=== PATIENT | male | born 1975 | race Caucasian/White ===

== ENCOUNTER 2023-09-09 16:10 | Emergency (ER) | payer OTHER, SELFPAY ==
--- NOTE | 2023-09-09 | ECG_ITS ---
Test Reason : SYNCOPE Blood Pressure : / mmHG Vent. Rate : 058 BPM Atrial Rate : 058 BPM P-R Int : 174 ms QRS Dur : 098 ms QT Int : 406 ms P-R-T Axes : 073 065 051 degrees QTc Int : 398 ms Sinus bradycardia Possible Left atrial enlargement Borderline ECG No previous ECGs available Referred By: Generic ED Physician Electronically Signed By:Joaquim Fontana
--- NOTE | ~2023-09-09 | CT_ITS ---
EXAMINATION: CT head/brain wo IV con CT facial bones wo IV con CT cervical spine wo IV con INDICATION INFORMATION: fall, head strike COMPARISON: None TECHNIQUE: Multidetector CT acquisitions of the head, maxillofacial region, and cervical spine were obtained without IV contrast. Multiplanar reformats were acquired and utilized for image interpretation. This CT examination was performed using dose optimization techniques as appropriate, variously including the following: * Automated exposure control * Adjustment of mA and/or kV according to patient size (this includes techniques or standardized protocols for targeted exams where dose is matched to indication/reason for exam; i.e. extremities or head) Use of iterative reconstruction technique DLP: 1528 mGy-cm FINDINGS: HEAD: There is no evidence of acute intracranial hemorrhage or territorial infarction. No abnormal mass-effect or midline shift is seen. Martinez to white matter differentiation is well preserved. No extra-axial fluid collections are identified. No hydrocephalus. No significant volume loss. There is no abnormal attenuation within the brain parenchyma. No acute soft tissue abnormality. No acute calvarial fracture. The mastoid air cells are well aerated. MAXILLOFACIAL: No acute maxillofacial fractures are seen. The mandible, maxilla, pterygoid plates, nasal bones, zygomatic arches, paranasal sinus ramírez, and bony orbits are intact. Mucoperiosteal thickening in dependent fluid in the right maxillary sinus. Otherwise, the frontal, maxillary, ethmoid, and sphenoid sinuses are well aerated. The uncinate process is normal bilaterally. The infundibula and middle meati are patent. There is a Side rightward nasal septal deviation. The mandibular heads are well-seated in the condylar fossa. The orbits demonstrate a normal appearance bilaterally. The globes are intact, and there are no suspicious findings to suggest retrobulbar hemorrhage. CERVICAL SPINE: There is anatomic alignment of the vertebral bodies and posterior elements. Degenerative disc disease at C6-C7 with loss intervertebral disc height and marginal osteophytes. Otherwise, intervertebral disc spaces are maintained. Vertebral body heights are normal. No acute fracture or subluxation. Mild atlantodental spondylosis. The atlantooccipital and atlantoaxial articulations are normal. Moderate left C6-C7 and right C5-C6 neural foraminal stenosis. The bony canal and neural foramina are otherwise well maintained. There is no prevertebral soft tissue swelling. No significant soft tissue abnormality within the neck. The visualized lung apices are clear. CT/CT cervical spine wo IV con IMPRESSION: 1. No acute intracranial abnormality. 2. No acute osseous abnormality within the maxillofacial region. 3. No acute osseous abnormality within the cervical spine. Degenerative disc disease at C6-C7.
[2023-09-09 16:17] VITALS: BP 125/83; PULSE 60; O2SAT 92
[2023-09-09 16:21] VITALS: BMI 28.2
[2023-09-09 16:26] VITALS: BP 115/69; PULSE 57; RESP 14; TEMP 36.7; O2SAT 96
--- NOTE | 2023-09-09 16:40 | PC.NURSE ---
pt biba - having lunch w/ family - witnessed syncopal episode. 30 second LOC. +headstrike - contusion to right occiput. lac to right eyebrow. extremely pale/somnolent upon EMS arrival. 92% on RA - placed on 2L via NC w/ good effect. verbalizes dizziness/lightheaded prior to fall. had one drink today. upon ED arrival - pt seemingly confused/sleepy. arousable to verbal stimuli but keeps closing eyes when conversating. pt still verbalizing feeling dizzy/lightheaded s/p fall. small laceration noted to pt's right eyebrow. bleeding controlled. vss and up to date. on RA w/o difficulty. 20gIV placed in the left hand by EMS - patent/intact. pt refused hard c-collar. as an alternate, towel c-collar in place d/t pt's previous refusal. no sob/wob noted. respirations even/unlabored. lights dimmed d/t pt verbalizing that the lights are bothering his eyes. plan of care ongoing. call padilla placed within reach.
[2023-09-09 16:43] LABS: MANUAL DIFF FLAG NO
[2023-09-09 16:45] LABS: Basophils Absolute Auto 0.1 X10*3/uL (0.0-0.2); Basophils Percent Auto 0.8 % (0-2); Eosinophils Absolute Auto 0.2 X10*3/uL (0.0-0.4); Eosinophils Percent Auto 2.8 % (0-4); Hemoglobin 13.8 g/dl (14.0-18.0); Imm Gran Abs Auto 0.08 X10*3/uL (0.00-0.03); Lymphocytes Absolute Auto 2.8 X10*3/uL (1.2-4.9); Lymphocytes Percent Auto 35.9 % (20-40); Mean Corpuscular HGB Conc 34.5 g/dl (31.0-36.0); Mean Corpuscular Hemoglobin 29.6 pg (27.0-33.0); Mean Corpuscular Volume 85.7 fL (80.0-98.0); Mean Platelet Volume 9.5 fL (9.4-12.4); Monocytes Absolute Auto 0.8 X10*3/uL (0.1-1.2); Monocytes Percent Auto 9.8 % (2-11); Neutrophils Absolute Auto 3.9 x10*3/uL (2.0-8.3); Neutrophils Percent Auto 49.7 % (45-73); Platelet Count 316 X10*3/uL (160-400); Red Blood Count 4.67 X10*6/uL (4.60-5.80); Red Cell Distribution Width 12.3 % (11.0-16.0); White Blood Count 7.8 X10*3/uL (4.8-10.8)
--- NOTE | 2023-09-09 16:45 | ED_ITS ---
HPI - General Adult General Chief complaint: Syncope Stated complaint: SYNCOPE W/ FALL Time Seen by Provider: 09/09/23 16:44 Source: patient, family (patient's ) and EMS Mode of arrival: EMS Limitations: no limitations History of Present Illness ED Provider: Courtney Kim PA-C HPI narrative: Patient is a 47 year old assigned male at with no reported medical history presenting to the emergency department today with nausea and vomiting after a syncopal episode. Patient states that after he ate breakfast this morning, they were sitting around talking, when he passed out and hit his head. Patient states that since he has woken up he has been vomiting and nauseous. Patient denies any dizziness, lightheadedness, abdominal pain, fever, chills, blurry vision, double vision, loss of vision, chest pain, difficulty breathing, shortness of breath, back pain, night sweats, pain with urination, increased urinary frequency, increased urinary urgency, blood in his urine or stool, syncope or a near syncopal episode, bowel incontinence, bladder incontinence, or any other complaints at this time. Onset (ago): minute(s) Relieving factors: none Exacerbating factors: none Associated symptoms: nausea/vomiting and syncope Treatments prior to arrival: none Related Data Previous Rx's ?Medication ?Instructions ?Recorded ondansetron 4 mg disintegrating 4 mg PO Q8H 3 days #9 tabs 09/09/23 tablet Allergies Allergy/AdvReac Type Severity Reaction Status Date / Time No Known Allergies Allergy Verified 09/09/23 16:22 Review of Systems 2 Constitutional: Constitutional: Reports no additional constitutional complaints, Denies chills, Denies fever(s) and Denies night sweats Eyes: Eyes: Reports no additional eye complaints, Denies blurry vision, Denies change in vision, Denies diplopia, Denies eye discharge, Denies loss of vision and Denies eye pain ENT: Denies dizziness Cardiovascular: Cardiovascular: Reports no additional cardiovascular complaints, Denies chest pain, Reports syncope, Denies lightheadedness, Denies Loss of Consciousness and Denies dyspnea Respiratory: Respiratory: Reports no additional respiratory complaints and Denies dyspnea Gastrointestinal: Gastrointestinal: Reports no additional gastrointestinal complaints, Denies abdominal pain, Denies melena, Denies hematochezia, Denies change in bowel habits, Denies change in stool character, Reports nausea and Reports vomiting Genitourinary: Genitourinary: Reports no additional male genitourinary complaints, Denies hematuria, Denies oliguria, Denies difficulty urinating, Denies dysuria, Denies urinary frequency, Denies urinary hesitancy, Denies urinary incontinence and Denies urinary urgency Musculoskeletal: Musculoskeletal: Reports no additional musculoskeletal complaints, Denies numbness and Denies tingling Neurologic: Denies dizziness, Reports syncope, Denies loss of vision, Denies numbness and Denies tingling Psychiatric: Psychiatric: Reports no additional psychiatric complaints Endocrine: Endocrine: Reports no additional endocrine complaints Hematologic/Lymphatic: Hematologic/Lymphatic: Reports no additional hematologic/lymphatic complaints Allergic/Immunologic: Allergic/Immunologic: Reports no additional allergic/immunologic complaints PMFSH Past Medical History Attestation statement: The following information was validated with the patient. (all information validated with the patient's ) Source: old records reviewed, obtained from family (patient's provided additional history and confirmed the history provided) and nursing notes reviewed Social History Social History Alcohol intake: current Alcohol intake frequency: holidays/special occasions only Smoked in Last 30 Days: No Use of substances other than those prescribed or required for medical reasons: No Advance Directives: No Advance Directives Information Provided: No Do you have a plan to hurt others: No Plan Physical Exam ED Vital Signs: Vital Signs - 24 hr 09/09/23 16:26 09/09/23 18:13 09/09/23 18:16 Temperature 98.0 F Pulse Rate 57 61 Respiratory Rate 14 16 Blood Pressure 115/69 125/73 Pulse Oximetry 96 96 96 Oxygen Delivery Method Room Air Room Air Room Air 09/09/23 19:10 Temperature 98 F Pulse Rate 61 Respiratory Rate 16 Blood Pressure 125/73 Pulse Oximetry 96 Oxygen Delivery Method Room Air BMI result Body Mass Index 28.2 Const General: cooperative, no acute distress, alert and awake Nutritional Appearance: well nourished Orientation/consciousness: patient oriented x3 Limitations: no limitations HENMT Ears: hearing grossly normal bilaterally and external ears normal General nose exam: Normal external nose present, no nasal discharge noted and no epistaxis Face images: 2 1. 0.25cm laceration to the right eyebrow - no active bleeding Mouth: Normal oral and palatal mucosa present, no drooling and no muffled voice Eyes General: appearance normal, both eyes and all related structures Periorbital: periorbital findings normal Eyelids: Yes eyelids normal Conjunctivae: conjunctivae normal Pupils: Equal, round and reactive pupils present EOM: EOMs intact bilaterally Neck Neck: Yes normal visual inspection, Yes full ROM and Yes no lymphadenopathy Chest Chest palpation & inspection: normal inspection of the chest Resp Effort & Inspection: normal respiratory effort and able to speak in complete sentences GI Inspection: Yes normal to inspection Neuro General: patient oriented x3 and moves all extremities Cranial nerves: Yes Equal, round and reactive pupils present Cognition (Neuro): normal cognition Extrem General: Yes normal to inspection, Yes full ROM and Yes capillary refill normal Psych Appearance: grossly normal Mental Status: mental status grossly normal Affect: normal affect Attitude: cooperative Thought process: Normal thought process present Thought content: Normal thought content present Insight: Good insight present (Psych) Medications Administered Discontinued Medications Generic Name Dose Route Start Last Admin Trade Name Freq PRN Reason Stop Dose Admin Sodium Chloride 1,000 mls @ 999 mls/hr 09/09/23 18:00 09/09/23 19:04 Ns IV 09/09/23 19:00 Infused .Q1H1M NORA Infusion Ondansetron HCl 4 mg 09/09/23 16:49 09/09/23 16:52 Ondansetron Hcl 4 Mg/2 Ml Vial IVPUSH 09/09/23 16:50 4 mg ONCE ONE Administration Procedures Laceration right eyebrow: Site: other (eyebrow) Side (If applicable): right Size (cm): 0.25 Description: linear Depth: simple, single layer Pre-repair: irrigated extensively and deep structures intact Skin layer closed with: other (dermabond) Size (cm): other (dermabond) Technique: other (dermabond) Medical Decision Making Medical Decision Making MDM Narrative: Patient is a 47 year old assigned male at with no reported medical history presenting to the emergency department today after a syncopal episode. Patient's physical exam was as noted in the physical exam portion of this note. Patient's blood work was unremarkable. Patient's EKG was unremarkable. Patient's CT head, neck, and facial bones showed no acute process. I explained my physical exam findings as well as all test results to the patient and the patient's . I answered all questions asked by the patient and the patient's . Patient received IV fluids and Zofran which he stated helped his symptoms significantly. I stressed the importance of the patient taking his medication as directed (either prescribed or as the over the counter packaging recommends). I stressed the importance of the patient following up with his primary care provider. I stressed the importance of the patient returning to the emergency department immediately if his symptoms were to worsen or if he were to develop any dizziness, shortness of breath, difficulty breathing, chest pain, blurry vision, loss of vision, nausea, vomiting, abdominal pain, fever, chills, back pain, or any other complaints. Patient and the patient's verbalized agreement and understanding with this treatment plan and discharge. Differential Diagnosis Differential Diagnoses: The differential diagnosis associated with the presentation includes Syncopal episode Dehydration Head strike R eyebrow laceration Admission/Observation Consideration of admission/observation: Escalation of care including admission/observation considered Patient would have been admitted to the hospital had his work up had any findings where hospital admission was appropriate and his clinical presentation warranted hospital admission. Lab Data [facility] Lab Attestation statement: I reviewed the patient's lab results. My interpretation of these results are in the [facility] Rationale portion of this note. 09/09/23 16:31 09/09/23 16:31 Labs: Lab Results 09/09/23 09/09/23 Range/Units 16:31 17:45 WBC 7.8 (4.8-10.8) X10*3/uL RBC 4.67 (4.60-5.80) X10*6/uL Hgb 13.8 L (14.0-18.0) g/dl Hct 40.0 L (42.0-52.0) % MCV 85.7 (80.0-98.0) fL MCH 29.6 (27.0-33.0) pg MCHC 34.5 (31.0-36.0) g/dl RDW 12.3 (11.0-16.0) % Plt Count 316 (160-400) X10*3/uL MPV 9.5 (9.4-12.4) fL Immature Gran % (Auto) 1.0 H (0.0-0.4) % Neut % (Auto) 49.7 (45-73) % Lymph % (Auto) 35.9 (20-40) % Wilbarger % (Auto) 9.8 (2-11) % Eos % (Auto) 2.8 (0-4) % Baso % (Auto) 0.8 (0-2) % Lymph # (Auto) 2.8 (1.2-4.9) X10*3/uL Wilbarger # (Auto) 0.8 (0.1-1.2) X10*3/uL Eos # (Auto) 0.2 (0.0-0.4) X10*3/uL Baso # (Auto) 0.1 (0.0-0.2) X10*3/uL Abs Immat Gran (auto) 0.08 H (0.00-0.03) X10*3/uL Absolute Neuts (auto) 3.9 (2.0-8.3) x10*3/uL Absolute Nucleated RBC 0.000 (0.0-0.012) X10*3/uL Nucleated RBC % (auto) 0.0 (0.0-0.2) /100WBC Sodium 141 (135-145) mmol/L Potassium 3.5 (3.3-5.1) mmol/L Chloride 106 (96-108) mmol/L Carbon Dioxide 25 (22-29) mmol/L Anion Gap 14 (12-20) BUN 13 (9-16) mg/dL Creatinine 1.02 (0.5-1.4) mg/dL Estim Creat Clear Calc 105.5 Estimated GFR > 60 Random Glucose 133 H (60-115) mg/dL Calcium 9.0 (8.4-10.2) mg/dL Total Bilirubin 0.3 (0.0-1.0) mg/dL AST 18 (5-37) U/L ALT 20 (0-40) U/L Alkaline Phosphatase 51 (39-117) U/L Troponin I High Sens < 2.7 (<3.5-35.0) ng/L Total Protein 6.6 (6.5-8.0) g/dL Albumin 4.0 (3.5-5.0) g/dL Ethyl Alcohol < 10 mg/dL Influenza Type A (PCR) NEGATIVE (Negative) Influenza Type B (PCR) NEGATIVE (Negative) RSV RNA Qual (PCR) NEGATIVE (Negative) SARS-CoV-2 RNA (RT-PCR) NEGATIVE (Negative) Independent Interpretation I performed an independent interpretation of an: EKG and CT Scan Interpretation: My interpretation is in agreement with the radiologist's impression of these imaging studies. - EXAMINATION: CT head/brain wo IV con CT facial bones wo IV con CT cervical spine wo IV con INDICATION INFORMATION: fall, head strike COMPARISON: None TECHNIQUE: Multidetector CT acquisitions of the head, maxillofacial region, and cervical spine were obtained without IV contrast. Multiplanar reformats were acquired and utilized for image interpretation. This CT examination was performed using dose optimization techniques as appropriate, variously including the following: * Automated exposure control * Adjustment of mA and/or kV according to patient size (this includes techniques or standardized protocols for targeted exams where dose is matched to indication/reason for exam; i.e. extremities or head) Use of iterative reconstruction technique DLP: 1528 mGy-cm FINDINGS: HEAD: There is no evidence of acute intracranial hemorrhage or territorial infarction. No abnormal mass-effect or midline shift is seen. Martinez to white matter differentiation is well preserved. No extra-axial fluid collections are identified. No hydrocephalus. No significant volume loss. There is no abnormal attenuation within the brain parenchyma. No acute soft tissue abnormality. No acute calvarial fracture. The mastoid air cells are well aerated. MAXILLOFACIAL: No acute maxillofacial fractures are seen. The mandible, maxilla, pterygoid plates, nasal bones, zygomatic arches, paranasal sinus ramírez, and bony orbits are intact. Mucoperiosteal thickening in dependent fluid in the right maxillary sinus. Otherwise, the frontal, maxillary, ethmoid, and sphenoid sinuses are well aerated. The uncinate process is normal bilaterally. The infundibula and middle meati are patent. There is a Side rightward nasal septal deviation. The mandibular heads are well-seated in the condylar fossa. The orbits demonstrate a normal appearance bilaterally. The globes are intact, and there are no suspicious findings to suggest retrobulbar hemorrhage. CERVICAL SPINE: There is anatomic alignment of the vertebral bodies and posterior elements. Degenerative disc disease at C6-C7 with loss intervertebral disc height and marginal osteophytes. Otherwise, intervertebral disc spaces are maintained. Vertebral body heights are normal. No acute fracture or subluxation. Mild atlantodental spondylosis. The atlantooccipital and atlantoaxial articulations are normal. Moderate left C6-C7 and right C5-C6 neural foraminal stenosis. The bony canal and neural foramina are otherwise well maintained. There is no prevertebral soft tissue swelling. No significant soft tissue abnormality within the neck. The visualized lung apices are clear. CT/CT head/brain wo IV con IMPRESSION: 1. No acute intracranial abnormality. 2. No acute osseous abnormality within the maxillofacial region. 3. No acute osseous abnormality within the cervical spine. Degenerative disc disease at C6-C7. Dictated By: Carli Ocasio Signed By: Electronically signed by Carli Ocasio 09/09/23 1749 - Vent. Rate: 058 BPM Atrial Rate: 058 BPM P-R Int: 174 ms QRS Dur: 098 ms QT Int: 406 ms P-R-T Axes: 073 065 051 degrees QTc Int: 398 ms Sinus bradycardia Possible left atrial enlargement DD/ 1617 Radiology Impression Discussion of test interpretation with radiology: I have reviewed the radiologist's reading. Independent Historian Clinical information obtained from an independent historian. History obtained from or confirmed by: Spouse (patient's provided additional history and confirmed the history provided by the patient) and EMS (EMS provided additional history and confirmed the history provided by the patient.) Critical Care Time Critical Care Time Critical Care Time: Yes Total Critical Care Time: 42 Attestation: I spent 42 minutes of Critical Care Time with this patient. This does not include time spent on separately reported billable procedures. Discharge Plan Discharge Clinical Impression: Vasovagal syncope, Nausea & vomiting, Laceration of eyebrow, right Patient Disposition: Home, Self-Care Instructions: Syncope (DC), Acute Nausea and Vomiting (ED), Facial Laceration (ED) Additional Instructions: Do NOT get the repaired area wet for at LEAST 7 days. Follow up with your primary care provider. Return to the emergency department immediately if your symptoms worsen or if you develop any dizziness, shortness of breath, difficulty breathing, chest pain, blurry vision, loss of vision, nausea, vomiting, abdominal pain, fever, chills, back pain, or any other complaints. Prescriptions: New ondansetron 4 mg tablet,disintegrating 4 mg PO Q8H 3 Days Qty: 9 0RF Referrals: [facility] Family [facility] [Provider Group] (Call to establish and follow up with a primary care provider. If you already have a primary care provider, please follow up with them.) [facility] [Provider Group] [facility] Primary [facility] [Provider Group] Interventions: ED Discharge Assessment Last Done: 09/09/23 19:10 Discharge Date/Time: 09/09/23 19:11 Print Language: Barbadian
[2023-09-09] MEDS: ondansetron HCL 4 MG/2 ML VIAL IVPUSH (16:52)
[2023-09-09 17:01] LABS: Ethanol < 10 mg/dL
[2023-09-09 17:03] LABS: Alanine Aminotransferase 20 U/L (0-40); Alkaline Phosphatase 51 U/L (39-117); Anion Gap 14 (12-20); Aspartate Amino Transferase 18 U/L (5-37); Bilirubin Total 0.3 mg/dL (0.0-1.0); Blood Urea Nitrogen 13 mg/dL (9-16); Carbon Dioxide 25 mmol/L (22-29); Chloride 106 mmol/L (96-108); Creatinine Clr Calc Pharmacy 105.5; Estimated Glomerular Filt Rate > 60; Glucose Random 133 mg/dL (60-115); Potassium 3.5 mmol/L (3.3-5.1); Sodium 141 mmol/L (135-145); Total Protein 6.6 g/dL (6.5-8.0)
[2023-09-09 17:11] LABS: Troponin-I High Sensitivity < 2.7 ng/L (<3.5-35.0)
--- NOTE | 2023-09-09 17:15 | PC.NURSE ---
pt to CT at this time.
[2023-09-09] MEDS: 0.9 % Sodium Chloride 1,000 ML 999 ML IV (18:12)
[2023-09-09 18:13] VITALS: BP 125/73; PULSE 61; RESP 16; O2SAT 96
--- NOTE | 2023-09-09 18:15 | PC.NURSE ---
vss and up to date. 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 IVF administered per provider order.
[2023-09-09 18:16] VITALS: O2SAT 96
[2023-09-09 18:39] LABS: Influenza A PCR NEGATIVE (Negative); Influenza B PCR NEGATIVE (Negative); Resp Syncy Virus RNA Qual PCR NEGATIVE (Negative); SARS COV2 PCR INHOUSE NEGATIVE (Negative)
[2023-09-09 19:10] VITALS: BP 125/73; PULSE 61; RESP 16; TEMP 36.6; O2SAT 96
== END 2023-09-09 19:11 | disposition home or self-care (01) ==
PROVIDERS: Physician Assistant Medical; Emergency Provider Emergency Medicine Emergency Medical Services
DX: R55 Syncope and collapse (principal); R11.2 Nausea with vomiting, unspecified; S01.111A Laceration without foreign body of right eyelid and periocular area, initial encounter; W18.30XA Fall on same level, unspecified, initial encounter; Y93.9 Activity, unspecified; Y92.9 Unspecified place or not applicable; Y99.9 Unspecified external cause status; Z03.818 Encounter for observation for suspected exposure to other biological agents ruled out
CPT/HCPCS: 0241U; 12011; 36415; 70450; 70486; 72125; 80053; 80307; 84484; 85025; 93005; 96361; 96374; 99284; 99285; J2405

== ENCOUNTER → 2023-09-09 16:17 | Outpatient (BNV) | payer OTHER, SELFPAY | PROVIDERS: Emergency Provider Emergency Medicine Emergency Medical Services; Visit Provider Internal Medicine Cardiovascular Disease | DX: R55 Syncope and collapse (principal); R00.1 Bradycardia, unspecified; R94.31 Abnormal electrocardiogram [ECG] [EKG] | CPT/HCPCS: 93010 ==